=== PATIENT | female | born 1950 | race Caucasian/White ===

== ENCOUNTER 2016-10-03 17:33 | Emergency (ER) | payer MEDICARE ==
[~2016-10-03] VITALS: Ht 160 cm; Wt 95.5 kg
[~2016-10-03 17:33] MED LIST: ASPI81TA81; ATOR10TA15 PO; CELE20TA PO; CYCL5TAB PO; LEVO150T7 PO; METF500T PO; MOBI7.5T PO; PLAV75TA29 PO
[2016-10-03 17:36] VITALS: BP 177/81; PULSE 99; RESP 24; TEMP 99.4; O2SAT 97
--- NOTE | 2016-10-03 17:40 | PD ---
Physical Exam Date Seen by Provider: Oct 03, 2016 Time Seen by Provider: 17:38 Narrative 66 yo female here for severe upper abdominal pain in LUQ. Has had this since today. Progressively worst. No vomitiing. But nausea. History of bowel obstructions in the past and per patient feels similar. No BM issues. Pain is 8/ 10, severe and sharp. Vitals are stable in triage. Awaiting bed placement. Data Data Last Documented VS Vital Signs Date Time Temp Pulse Resp B/P Pulse Ox O2 Delivery O2 Flow Rate FiO2 10/03/16 17:36 99.4 99 24 177/81 97 Room Air [facility] Medical Record Reviewed: Yes Supervised Visit with MELLISSA: No Jameel Reynoso Oct 03, 2016 17:40
[2016-10-03] MEDS ORDERED: METF1000 PO (20:01)
[2016-10-03] MEDS ORDERED: LEVO25TA4 PO (20:02)
--- NOTE | 2016-10-03 20:12 | PD ---
HPI Chief Complaint: Abdominal Pain Time Seen by Provider: 20:06 Travel History International Travel<30 days: No Contact w/Intl Traveler<30days: No Traveled to known affect area: No History of Present Illness HPI 66-year-old overweight female presents the emergency department with history of abdominal pain since early this morning. Patient states she took her metformin 1000 mg which was recently prescribed to her and she developed this sort of central middle abdominal discomfort. She felt it was probably due to the medication at first but through the day her pain has progressed and worsened. She feels nauseous but has not vomited. The small amount of hard stool this morning. She has chills but no fever. She denies urinary or vaginal symptoms. Patient has history of small bowel obstruction in the past. She has no history of diverticulitis. She has no gallbladder or appendix at this time. She denies chest pain or shortness of breath. She states the pain is an ache which radiates through to her back. She has no appetite due to the pain. She is allergic to Diflucan. She has nausea with Tylenol 3. PFSH Past Medical History Arthritis: Yes Asthma: Yes (stress induced ) Autoimmune Disease: Yes (FAMILIAL TRAIT) Depression: Yes Heart Rhythm Problems: No High Cholesterol: Yes Chest Pain: No Congestive Heart Failure: No COPD: No Cerebrovascular Accident: Yes (CVA 1997/left thol area) Diabetes: Yes Patient Takes Glucophage: Yes Diminished Hearing: No Gastrointestinal Disorders: Yes (CELIAC'S) GERD: Yes Glaucoma: No Genitourinary: No Headaches: Yes Hepatitis: No Hiatal Hernia: No Hypertension: Yes Immune Disorder: Yes Kidney Stones: No Musculoskeletal: Yes Neurologic: Yes Reproductive: No Respiratory: No Immunizations Current: No Migraines: Yes Myocardial Infarction: No Renal Failure: No Seizures: No Sleep Apnea: No Thyroid Disease: Yes Ulcer: Yes (GASTRIC ULCER) Tetanus Vaccination: < 5 Years Influenza Vaccination: Yes PNEUMOCCOCAL Vaccine (Year): 1 ?: Not Menopausal: Yes : 5 Para: 3 Miscarriage: 2 : 0 Tubal Ligation: Yes Past Surgical History Abdominal Surgery: Yes (MESH AFTER GALL BLADDERdue to insci hernias) Appendectomy: Yes Cardiac Surgery: No Cholecystectomy: Yes Ear Surgery: No Endocrine Surgery: No Eye Surgery: No Genitourinary Surgery: No Gynecologic Surgery: Yes (BECK) Hysterectomy: Yes Joint Replacement: Yes (L KNEE) Neurologic Surgery: Yes Oral Surgery: No Thoracic Surgery: No Tonsillectomy: Yes Other Surgery: Yes Social History Alcohol Use: No Tobacco Use: No Substance Use: No Allergies-Medications (Allergen,Severity, Reaction): Coded Allergies: Diflucan (Verified Allergy, Severe, RASH, 10/03/16) Tylenol #3 (Verified Allergy, Severe, N/V, 10/03/16) Reported Meds & Prescriptions Reported Meds & Active Scripts Active Reported Levothyroxine (Levothyroxine Sodium) 25 Mcg Tab 25 Mcg PO DAILY Metformin (Metformin HCl) 1,000 Mg Tab 1,000 Mg PO BID With meals Plavix (Clopidogrel Bisulfate) 75 Mg Tab 75 Mg PO DAILY Aspir-81 (Aspirin) 81 Mg Tabdr Mobic (Meloxicam) 7.5 Mg Tab 7.5 Mg PO BID Atorvastatin (Atorvastatin Calcium) 10 Mg Tab 10 Mg PO HS Celexa (Citalopram Hydrobromide) 20 Mg Tab 20 Mg PO DAILY Review of Systems Except as stated in HPI: all other systems reviewed are Neg General / Constitutional: Positive: Chills, No: Fever Eyes: No: Visual changes HENT: No: Headaches Cardiovascular: No: Chest Pain or Discomfort Respiratory: No: Shortness of Breath Gastrointestinal: Positive: Nausea, Abdominal Pain, Loss of Appetite, No: Vomiting, Diarrhea, Hematemesis, Hematochezia, Constipation Genitourinary: No: Dysuria Musculoskeletal: No: Pain Skin: No Rash Neurologic: No: Weakness Psychiatric: No: Depression Endocrine: No: Polydipsia Hematologic/Lymphatic: No: Easy Bruising Physical Exam Narrative GENERAL: Obese female in mild to moderate distress. SKIN: Warm and dry. Normal color. Normal turgor. HEAD: Atraumatic. Normocephalic. EYES: Pupils equal and round. No scleral icterus. No injection or drainage. ENT: No nasal bleeding or discharge. Mucous membranes pink and moist. Pharynx is clear. Airway is patent. NECK: Trachea midline. Supple and nontender. CARDIOVASCULAR: Regular rate and rhythm. RESPIRATORY: No accessory muscle use. Clear to auscultation. Breath sounds equal bilaterally. GASTROINTESTINAL: Abdomen soft, moderate centralized tenderness to palpation with question of rebound tenderness, nondistended. No CVA tenderness. Bowel sounds are present in all quadrants. No hernias appreciated. Hepatic and splenic margins not palpable. MUSCULOSKELETAL: Extremities without clubbing, cyanosis, or edema. No obvious deformities. NEUROLOGICAL: Awake and alert. No obvious cranial nerve deficits. Motor grossly within normal limits. Five out of 5 muscle strength in the arms and legs. Normal speech. PSYCHIATRIC: Appropriate mood and affect; insight and judgment normal. Data Data Last Documented VS Vital Signs Date Time Temp Pulse Resp B/P Pulse Ox O2 Delivery O2 Flow Rate FiO2 10/03/16 20:29 97 Room Air 10/03/16 20:13 81 20 171/89 10/03/16 17:36 99.4 Orders Complete Blood Count With Diff (10/03/16 20:04) Comprehensive Metabolic Panel (10/03/16 20:04) Lipase (10/03/16 20:04) Lactic Acid (10/03/16 20:04) Prothrombin Time / Inr (Pt) (10/03/16 20:04) Act Partial Throm Time (Ptt) (10/03/16 20:04) Urinalysis - C+S If Indicated (10/03/16 20:04) Ct Abd/Pel W Iv Contrast(Rout) (10/03/16 20:04) Iv Access Insert/Monitor (10/03/16 20:04) Ecg Monitoring (10/03/16 20:04) Oximetry (10/03/16 20:04) Sodium Chloride 0.9% Flush (Ns Flush) (10/03/16 20:15) Electrocardiogram (10/03/16 20:04) Morphine Inj (Morphine Inj) (10/03/16 21:00) Ondansetron Inj (Zofran Inj) (10/03/16 20:15) Sodium Chlorid 0.9% 500 Ml Inj (Ns 500 M (10/03/16 20:15) Oral Contrast - Adult (10/03/16 ) Hydromorphone Pf Inj (Dilaudid Pf Inj) (10/03/16 21:45) Diatrizoate Liq ( Gastroview Liq) (10/03/16 22:11) Labs Laboratory Tests Test 10/03/16 10/03/16 20:20 20:25 White Blood Count 12.2 TH/MM3 Red Blood Count 4.58 MIL/MM3 Hemoglobin 12.6 GM/DL Hematocrit 37.6 % Mean Corpuscular Volume 82.2 FL Mean Corpuscular Hemoglobin 27.5 PG Mean Corpuscular Hemoglobin 33.5 % Concent Red Cell Distribution Width 15.1 % Platelet Count 301 TH/MM3 Mean Platelet Volume 7.5 FL Neutrophils (%) (Auto) 65.1 % Lymphocytes (%) (Auto) 24.3 % Monocytes (%) (Auto) 6.5 % Eosinophils (%) (Auto) 3.6 % Basophils (%) (Auto) 0.5 % Neutrophils # (Auto) 7.9 TH/MM3 Lymphocytes # (Auto) 3.0 TH/MM3 Monocytes # (Auto) 0.8 TH/MM3 Eosinophils # (Auto) 0.4 TH/MM3 Basophils # (Auto) 0.1 TH/MM3 CBC Comment DIFF FINAL Differential Comment Prothrombin Time 10.4 SEC Prothromb Time International 0.9 RATIO Ratio Activated Partial 24.4 SEC Thromboplast Time Sodium Level 139 MEQ/L Potassium Level 4.2 MEQ/L Chloride Level 106 MEQ/L Carbon Dioxide Level 23.7 MEQ/L Anion Gap 9 MEQ/L Blood Urea Nitrogen 22 MG/DL Creatinine 0.95 MG/DL Estimat Glomerular Filtration 58 ML/MIN Rate Random Glucose 97 MG/DL Calcium Level 9.1 MG/DL Total Bilirubin 0.4 MG/DL Aspartate Amino Transf 21 U/L (AST/SGOT) Alanine Aminotransferase 20 U/L (ALT/SGPT) Alkaline Phosphatase 72 U/L Total Protein 7.1 GM/DL Albumin 3.4 GM/DL Lipase 168 U/L Lactic Acid Level 1.7 mmol/L MDM Medical Decision Making Medical Screen Exam Complete: Yes Emergency Medical Condition: Yes Medical Record Reviewed: Yes Differential Diagnosis Gastritis. Gastroenteritis. Biliary colic. Pancreatitis. Diverticulitis. Small bowel obstruction. Narrative Course Patient is uncomfortable but medically stable at time of exam. Labs ordered including CBC, CMP, lactic acid, lipase, urinalysis. EKG is ordered as well as CT of the abdomen with IV and oral contrast. IV access is obtained and the patient is given 4 mg IV Zofran and 4 mg morphine IV. Patient is given 500 mg normal saline bolus. CBC shows a slight leukocytosis of 12.2. CMP shows nothing remarkable with a normal lactic acid of 1.7, BUN is slightly elevated at 22 otherwise no significant findings. 2300 hrs. care of the patient is assumed by Dr. Brandt. CT scan has not been performed yet. Final disposition will be from Dr. Orozco. Condition: Stable Tacho Duarte Oct 03, 2016 20:12
[2016-10-03 20:13] VITALS: BP 171/89; PULSE 81; RESP 20; O2SAT 97
[2016-10-03] MEDS ORDERED: SODIUM CHLORID 0.9% 500 ML INJ 500 ML IV ONE (20:15)
[2016-10-03] MEDS ORDERED: SODIUM CHLORIDE 0.9% FLUSH 10 ML FLUSH IV FLUSH PRN (20:15)
[2016-10-03] MEDS ORDERED: ONDANSETRON HCL 4 MG/2 ML VIAL IVP ONE (20:15)
[2016-10-03 20:29] VITALS: O2SAT 97
[2016-10-03] MEDS ORDERED: MORPHINE SULFATE 4 MG/ML INJ IV PUSH ONE (21:00)
[2016-10-03 21:08] LABS: AUTOMATED NEUTROPHIL # 7.9 TH/MM3 (1.8-7.7); BASOPHIL # 0.1 TH/MM3 (0-0.2); BASOPHIL % 0.5 % (0.0-2.0); EOSINOPHIL # 0.4 TH/MM3 (0-0.4); EOSINOPHIL % 3.6 % (0.0-4.0); HEMATOCRIT 37.6 % (35.0-46.0); HEMO FLAGS DIFF FINAL; LYMPH % 24.3 % (9.0-44.0); MEAN CELL VOLUME 82.2 FL (80.0-100.0); MEAN CORPUSCULAR HEMOGLOBIN 27.5 PG (27.0-34.0); MEAN CORPUSCULAR HGB CONC 33.5 % (32.0-36.0); MONO % 6.5 % (0.0-8.0); NEUT % 65.1 % (16.0-70.0); PLATELET COUNT 301 TH/MM3 (150-450); RED BLOOD COUNT 4.58 MIL/MM3 (4.00-5.30); RED CELL DISTRIBUTION WIDTH 15.1 % (11.6-17.2); WHITE BLOOD COUNT 12.2 TH/MM3 (4.0-11.0)
[2016-10-03 21:18] LABS: APTT (PATIENT) 24.4 SEC (24.3-30.1); INTERNATIONAL NORMALIZED RATIO 0.9 RATIO; PROTHROMBIN TIME - PATIENT 10.4 SEC (9.8-11.6)
[2016-10-03 21:27] LABS: ALT (GPT) 20 U/L (10-53)
[2016-10-03 21:29] LABS: ALKALINE PHOSPHATASE 72 U/L (45-117); ANION GAP 9 MEQ/L (5-15); AST (GOT) 21 U/L (15-37); BICARBONATE 23.7 MEQ/L (21.0-32.0); BLOOD UREA NITROGEN 22 MG/DL (7-18); CHLORIDE 106 MEQ/L (98-107); GLOMERULAR FILTRATION RATE 58 ML/MIN (>89); POTASSIUM 4.2 MEQ/L (3.5-5.1); SODIUM (NA) 139 MEQ/L (136-145); TOTAL BILIRUBIN ADULT 0.4 MG/DL (0.2-1.0)
[2016-10-03] MEDS ORDERED: HYDROmorphone HCL PF 1 MG/ML VIAL IV PUSH ONE (21:45)
[2016-10-03] MEDS ORDERED: DIATRIZOATE MEGLUM/DIATRIZOATE SOD 9 ML CUP ONE (22:11)
[2016-10-03 23:02] LABS: BLOOD, URINE NEG (NEG); COMMENT (UR) CULT NOT INDICATED; CULTURE IF INDICATED CULT NOT INDICATED; GLUCOSE,URINE NEG (NEG); KETONE, URINE NEG (NEG); MUCUS URINE FEW /lpf (OCC); NITRITE,URINE NEG (NEG); SQUAMOUS EPITHELIAL CELL URINE 1 /hpf (0-5); URINE COLOR YELLOW (YELLW/STRAW)
[2016-10-03 23:33] VITALS: BP 141/67; PULSE 84; RESP 20; O2SAT 97
[2016-10-03] MEDS ORDERED: IOHEXOL 350 MG/ML 10 ML VIAL (for RAD DIAG) IV ONE (23:36)
--- NOTE | 2016-10-03 23:49 | RADRPT ---
EXAM DATE/TIME: 10/03/2016 23:15 [place] COMPARISON: No previous studies available for comparison. INDICATIONS : Abdominal pain since this morning. IV CONTRAST: 97 cc Omnipaque 350 (iohexol) IV ORAL CONTRAST: Prescribed oral contrast ingested. RADIATION DOSE: 19.65 CTDIvol (mGy) MEDICAL HISTORY : Hypertension. partial bowel obstruction SURGICAL HISTORY : Appendectomy. Cholecystectomy.Tubal ligation. ENCOUNTER: Initial ACUITY: 1 day PAIN SCALE: 7/10 LOCATION: abdomen TECHNIQUE: Volumetric scanning of the abdomen and pelvis was performed. Using automated exposure control and ad justment of the mA and/or kV according to patient size, radiation dose was kept as low as reasonably achievable to obtain optimal diagnostic quality images. DICOM format image data is available electro nically for review and comparison. FINDINGS: LOWER LUNGS: The visualized lower lungs are clear. Faint nodule left lower lobe is unchanged. LIVER: Homogeneous density without lesion. There is no dilation of the biliary tree. Suspected cholecystect rhonda. Clips in the hepatic vein SPLEEN: Normal size without lesion. PANCREAS: Within normal limits. KIDNEYS: Normal in size and shape. There is no mass, stone or hydronephrosis. ADRENAL GLANDS: Within normal limits. VASCULAR: There is no aortic aneurysm. BOWEL/MESENTERY: The stomach, small bowel, and colon demonstrate no acute abnormality. There is no free intraperitone al air or fluid. ABDOMINAL WALL: Within normal limits. Previous hernia mesh RETROPERITONEUM: There is no lymphadenopathy. BLADDER: No wall thickening or mass. REPRODUCTIVE: Within normal limits. INGUINAL: There is no lymphadenopathy or hernia. MUSCULOSKELETAL: Within normal limits for patient age. CONCLUSION: Normal examination with cholecystectomy previous hernia surgery. No evidence of bowel obstruction. No free fluid, mass, or soft tissue mass. Damien Conklin MD on October 03, 2016 at 23:43 Board Certified Radiologist. This report was verified electronically.
[2016-10-04] MEDS ORDERED: ZOFR4TAB3 SL (00:05)
[2016-10-04] MEDS ORDERED: DICY10 PO (00:05)
--- NOTE | 2016-10-04 00:06 | PD ---
Physical Exam Date Seen by Provider: Oct 03, 2016 Time Seen by Provider: 23:00 Narrative I, Dr. Carranza, have reviewed the advance practice practitioner's documentation and am in agreement, met with the patient face to face, made the diagnosis, and the medical decision making was done by me. *My assessment and Findings: Patient seen and evaluated with PA, please see PA note for further details. Laboratory Tests Test 10/03/16 10/03/16 20:20 21:55 White Blood Count 12.2 TH/MM3 (4.0-11.0) Neutrophils # (Auto) 7.9 TH/MM3 (1.8-7.7) Blood Urea Nitrogen 22 MG/DL (7-18) Estimat Glomerular Filtration 58 ML/MIN (>89) Rate Urine Leukocyte Esterase SMALL (NEG) Urine Mucus FEW /lpf (OCC) CT of the abdomen pelvis was unremarkable for any acute processes. Lab work was otherwise unremarkable for significant metabolic issues although she had mild leukocytosis. At this point, I have talked to the patient regarding findings and patient has had no further vomiting episodes while in the ER. Vital signs are stable in the ER. I have discussed outpatient follow-up closely with primary care physician versus observation admission. At this point , patient states that she would rather try to follow up outpatient with the primary care physician. Return for any worsening in symptoms as needed. The plan has been discussed with her and she states understanding. Data Data Last Documented VS Vital Signs Date Time Temp Pulse Resp B/P Pulse Ox O2 Delivery O2 Flow Rate FiO2 10/03/16 23:33 84 20 141/67 97 Room Air 10/03/16 17:36 99.4 Orders Complete Blood Count With Diff (10/03/16 20:04) Comprehensive Metabolic Panel (10/03/16 20:04) Lipase (10/03/16 20:04) Lactic Acid (10/03/16 20:04) Prothrombin Time / Inr (Pt) (10/03/16 20:04) Act Partial Throm Time (Ptt) (10/03/16 20:04) Urinalysis - C+S If Indicated (10/03/16 20:04) Ct Abd/Pel W Iv Contrast(Rout) (10/03/16 20:04) Iv Access Insert/Monitor (10/03/16 20:04) Ecg Monitoring (10/03/16 20:04) Oximetry (10/03/16 20:04) Sodium Chloride 0.9% Flush (Ns Flush) (10/03/16 20:15) Electrocardiogram (10/03/16 20:04) Morphine Inj (Morphine Inj) (10/03/16 21:00) Ondansetron Inj (Zofran Inj) (10/03/16 20:15) Sodium Chlorid 0.9% 500 Ml Inj (Ns 500 M (10/03/16 20:15) Oral Contrast - Adult (10/03/16 ) Hydromorphone Pf Inj (Dilaudid Pf Inj) (10/03/16 21:45) Diatrizoate Liq ( Gastroview Liq) (10/03/16 22:11) Iohexol 350 Inj (Omnipaque 350 Inj) (10/03/16 23:36) Labs Laboratory Tests Test 10/03/16 10/03/16 10/03/16 20:20 20:25 21:55 White Blood Count 12.2 TH/MM3 Red Blood Count 4.58 MIL/MM3 Hemoglobin 12.6 GM/DL Hematocrit 37.6 % Mean Corpuscular Volume 82.2 FL Mean Corpuscular Hemoglobin 27.5 PG Mean Corpuscular Hemoglobin 33.5 % Concent Red Cell Distribution Width 15.1 % Platelet Count 301 TH/MM3 Mean Platelet Volume 7.5 FL Neutrophils (%) (Auto) 65.1 % Lymphocytes (%) (Auto) 24.3 % Monocytes (%) (Auto) 6.5 % Eosinophils (%) (Auto) 3.6 % Basophils (%) (Auto) 0.5 % Neutrophils # (Auto) 7.9 TH/MM3 Lymphocytes # (Auto) 3.0 TH/MM3 Monocytes # (Auto) 0.8 TH/MM3 Eosinophils # (Auto) 0.4 TH/MM3 Basophils # (Auto) 0.1 TH/MM3 CBC Comment DIFF FINAL Differential Comment Prothrombin Time 10.4 SEC Prothromb Time International 0.9 RATIO Ratio Activated Partial 24.4 SEC Thromboplast Time Sodium Level 139 MEQ/L Potassium Level 4.2 MEQ/L Chloride Level 106 MEQ/L Carbon Dioxide Level 23.7 MEQ/L Anion Gap 9 MEQ/L Blood Urea Nitrogen 22 MG/DL Creatinine 0.95 MG/DL Estimat Glomerular Filtration 58 ML/MIN Rate Random Glucose 97 MG/DL Calcium Level 9.1 MG/DL Total Bilirubin 0.4 MG/DL Aspartate Amino Transf 21 U/L (AST/SGOT) Alanine Aminotransferase 20 U/L (ALT/SGPT) Alkaline Phosphatase 72 U/L Total Protein 7.1 GM/DL Albumin 3.4 GM/DL Lipase 168 U/L Lactic Acid Level 1.7 mmol/L Urine Color YELLOW Urine Turbidity CLEAR Urine pH 5.0 Urine Specific Romance 1.020 Urine Protein NEG mg/dL Urine Glucose (UA) NEG mg/dL Urine Ketones NEG mg/dL Urine Occult Blood NEG Urine Nitrite NEG Urine Bilirubin NEG Urine Urobilinogen LESS THAN 2.0 MG/DL Urine Leukocyte Esterase SMALL Urine RBC 2 /hpf Urine WBC 3 /hpf Urine Squamous Epithelial 1 /hpf Cells Urine Mucus FEW /lpf Microscopic Urinalysis Comment CULT NOT INDICATED MDM Medical Record Reviewed: Yes Supervised Visit with MELLISSA: Yes Diagnosis Primary Impression: Abdominal pain Med/Other Pt SpecificInfo: Prescription(s) given Scripts Ondansetron Odt (Zofran Odt)4 Mg Tab4 Mg SL Q6HR PRN (Nausea/Vomiting) #7 TAB Ref 0 Prov:Toby Craranza MD 10/04/16 Dicyclomine (Bentyl)10 Mg Cap10 Mg PO TID PRN (Bowel Management) #15 CAP Ref 0 Prov:Toby Carranza MD 10/04/16 Disposition: 01 DISCHARGE HOME Condition: Stable Toby Carranza MD Oct 04, 2016 00:05
--- NOTE | 2016-10-04 16:31 | EKG ---
Date Performed: 10/03/2016 Time Performed: 20:15:42 PTAGE: 66 years EKG: Sinus rhythm NORMAL ECG PREVIOUS TRACING : 10/03/2016 20.15 Since previous tracing, no significant change. DOCTOR: Garry Yadav Interpretating Date/Time 10/04/2016 16:30:51
== END 2016-10-04 00:39 | disposition home or self-care (01) ==
LOC: NEPE 17:33
DX: R10.12 Left upper quadrant pain (principal); R11.0 Nausea; E11.9 Type 2 diabetes mellitus without complications; I10 Essential (primary) hypertension; K21.9 Gastro-esophageal reflux disease without esophagitis; Z79.02 Long term (current) use of antithrombotics/antiplatelets; Z79.82 Long term (current) use of aspirin; Z79.84 Long term (current) use of oral hypoglycemic drugs
CPT/HCPCS: 74177; 80053; 81001; 83605; 83690; 85025; 85610; 85730; 93005; 96361; 96374; 96375; 99285; J1170; J2270; J2405; J7040; Q9963; Q9967

== ENCOUNTER 2017-08-07 23:55 | Emergency (ER) | payer MEDICARE, OTHER ==
[~2017-08-07] VITALS: Ht 160 cm; Wt 100.0 kg
[~2017-08-07 23:55] MED LIST changes: -CYCL5TAB PO; +DICY10 PO; -LEVO150T7 PO; +LEVO25TA4 PO; +METF1000 PO; -METF500T PO; +ZOFR4TAB3 SL
[2017-08-08 00:03] VITALS: BP 190/90; PULSE 88; RESP 18; O2SAT 97
[2017-08-08] MEDS ORDERED: CLON0.5T PO (00:09)
[2017-08-08] MEDS ORDERED: SODIUM CHLOR 0.9% 1000 ML INJ 1,000 ML IV SCH (00:42)
[2017-08-08] MEDS ORDERED: ONDANSETRON HCL 4 MG/2 ML VIAL IM ONE (00:45)
[2017-08-08] MEDS ORDERED: SODIUM CHLORIDE 0.9% FLUSH 10 ML FLUSH IV FLUSH PRN (00:45)
[2017-08-08] MEDS ORDERED: HYDROmorphone HCL PF 2 MG/ML VIAL IV PUSH ONE (00:45)
[2017-08-08] MEDS ORDERED: KETOROLAC TROMETHAMINE 30 MG/ML (IVP) VIAL IV PUSH ONE (00:45)
[2017-08-08 00:49] VITALS: O2SAT 98
[2017-08-08] MEDS ORDERED: ONDANSETRON ODT 4 MG TAB PO ONE (01:15)
[2017-08-08 01:27] LABS: AUTOMATED NEUTROPHIL # 6.2 TH/MM3 (1.8-7.7); BASOPHIL # 0.1 TH/MM3 (0-0.2); BASOPHIL % 0.9 % (0.0-2.0); EOSINOPHIL # 0.5 TH/MM3 (0-0.4); EOSINOPHIL % 4.6 % (0.0-4.0); HEMATOCRIT 36.8 % (35.0-46.0); HEMOGLOBIN 12.1 GM/DL (11.6-15.3); LYMPH % 30.9 % (9.0-44.0); LYMPHOCYTE # 3.4 TH/MM3 (1.0-4.8); MEAN CELL VOLUME 83.1 FL (80.0-100.0); MEAN CORPUSCULAR HEMOGLOBIN 27.3 PG (27.0-34.0); MEAN CORPUSCULAR HGB CONC 32.8 % (32.0-36.0); MEAN PLATELET VOLUME 7.4 FL (7.0-11.0); MONO % 7.6 % (0.0-8.0); MONOCYTE # 0.8 TH/MM3 (0-0.9); PLATELET COUNT 334 TH/MM3 (150-450); RED BLOOD COUNT 4.43 MIL/MM3 (4.00-5.30); RED CELL DISTRIBUTION WIDTH 15.2 % (11.6-17.2); WHITE BLOOD COUNT 11.1 TH/MM3 (4.0-11.0)
[2017-08-08 01:55] LABS: BICARBONATE 26.7 MEQ/L (21.0-32.0); CALCIUM 8.8 MG/DL (8.5-10.1); CREATININE 1.02 MG/DL (0.50-1.00)
[2017-08-08 02:17] LABS: BILIRUBIN, URINE NEG (NEG); BLOOD, URINE NEG (NEG); GLUCOSE,URINE NEG (NEG); KETONE, URINE NEG (NEG); MUCUS URINE FEW /lpf (OCC); NITRITE,URINE NEG (NEG); PH, URINE 5.5 (5.0-8.5); SQUAMOUS EPITHELIAL CELL URINE 1 /hpf (0-5); URINE COLOR YELLOW (YELLW/STRAW); URINE LEUKOCYTE ESTERASE NEG (NEG)
[2017-08-08] MEDS ORDERED: IOHEXOL 350 MG/ML 10 ML VIAL (for RAD DIAG) IVCONTRAST ONE (02:43)
--- NOTE | 2017-08-08 03:17 | RADRPT ---
EXAM DATE: 08/08/2017 2:49 AM EDT AGE/SEX: 67 years / Female INDICATIONS: Abdomen and back pain. CLINICAL DATA: This is the patient's initial encounter. Patient reports that signs and symptoms have been present for 1 day and indicates a pain score of 10/10. MEDICAL/SURGICAL HISTORY: Cerebrovascular disease. Hypertension. Diabetes mellitus type II. GERD Appendectomy. Cholecystectomy. Hysterectomy. Left knee replacement. Hernia repair. ORAL CONTRAST: No oral contrast ingested. RADIATION DOSE: 21.53 CTDI (mGy) COMPARISON: [facility] [place], CT ABDOMEN & PELVIS W CONTRAST, 10/03/2016. . TECHNIQUE: Multiple contiguous axial images were obtained through the abdomen and pelvis following b olus infusion of 95 ml Omnipaque 350 (iohexol) nonionic water-soluble contrast as a cumulative dose for multiple exams. No oral contrast ingested. Using automated exposure control and adjustment of t he mA and/or kV according to patient size, the radiation dose was kept as low as reasonably achievabl e to obtain optimal diagnostic quality images. FINDINGS: Lower Lungs: The visualized lower lungs are clear. Liver: There is diffuse decreased attenuation to the liver. There are clips around the common bile du ct and there appear to be small metallic densities at the middle hepatic vein region. The patient is status post cholecystectomy. Spleen: Homogeneous density without enlargement. Pancreas: Unremarkable without mass or calcification. Kidneys: There is a 3 mm nonobstructing right renal stone. No hydronephrosis is seen on either side. Adrenal Glands: Unremarkable. Aorta: Atherosclerotic calcifications are present. No aneurysm is seen. Bowel/Mesentery: There is a 3.9 cm duodenal diverticulum seen at the second portion of the duodenum. There are scattered colonic diverticula especially in the sigmoid region. Significant inflammatory c hange is not seen. Abdominal Wall: There is hernia mesh seen in the midline of the upper abdomen. There is a minimal um bilical hernia containing a small amount of mesenteric fat. There are some chronic induration in the subcutaneous fat at the lower left anterior abdominal wall likely related to fat necrosis. This was p resent previously. Retroperitoneum: No evidence of adenopathy in the retrocrural, para-aortic, or deep pelvic regions. Bladder: There are some tiny calcification seen at the posterior right aspect of the bladder potenti ally related to past stones or some calcification of the wall. These appear lateral to the UVJ. There is no hydronephrosis or hydroureter. Reproductive Organs: The patient is status post hysterectomy. Inguinal: The inguinal region is unremarkable without evidence of adenopathy. Bony Structures: There is degenerative change in the lumbar spine. CONCLUSION: 1. No definite acute abnormality is seen. 2. 3 mm nonobstructing right renal stone. 3. Hepatic steatosis. 4. Scattered colonic diverticula without inflammatory change. 5. Tiny calcifications in the posterior right aspect of the urinary bladder related to either passed stones or calcifications in the wall. These appear lateral to the UVJ. 6. Degenerative change in the lumbar spine. Electronically signed by: Nikhil Richey MD 08/08/2017 3:16 AM EDT
--- NOTE | 2017-08-08 03:29 | PD ---
HPI Chief Complaint: Back/ Neck Pain or Injury Time Seen by Provider: 00:42 Travel History International Travel<30 days: No Contact w/Intl Traveler<30days: No Traveled to known affect area: No History of Present Illness HPI 67-year-old female presents to the emergency department complaining of severe left flank to left lower abdomen pain that worsens with range of motion of the back and left lower extremity. No referred pain to the lower extremities no bladder or bowel dysfunction no saddle anesthesia and no lower extremity numbness tingling or weakness. Patient complains of severe back pains such that she is unable to move to straighten her legs or to get out of bed. Patient had to come to the emergency room department by ambulance due to her severe intractable pain. Patient has history of spinal stenosis and chronic back pain. Patient states that her is handicapped and she has been lifting his walker in and out of the car for him several times this week as well as doing yard work and lifting objects which is atypical for her. Patient also reports that she knows she has lumbar disc disease and some herniated disks reportedly. Patient denies any fall or other injury. Patient has had no fever no chills no nausea no vomiting except for the pain related nausea this evening. Patient has had no history of diverticulitis or diverticulosis. No dysuria frequency urgency hematuria and no prior history of kidney stones. Patient states movement causes severe exacerbation of her pain. Patient rates her current pain 9/10 in intensity. PFSH Past Medical History Narrative Medical Arthritis chronic back pain asthma dyslipidemia hypothyroidism CVA diabetes hypertension celiac disorder familial tremor appendectomy hysterectomy cholecystectomy; no tobacco use; nursing notes reviewed Arthritis: Yes Asthma: Yes (stress induced ) Autoimmune Disease: Yes (FAMILIAL TRAIT) Depression: Yes Heart Rhythm Problems: No High Cholesterol: Yes Chest Pain: No Congestive Heart Failure: No COPD: No Cerebrovascular Accident: Yes (CVA 1997/left [facility] area) Diabetes: Yes Patient Takes Glucophage: Yes Diminished Hearing: No Gastrointestinal Disorders: Yes (CELIAC'S) GERD: Yes Glaucoma: No Genitourinary: No Headaches: Yes Hepatitis: No Hiatal Hernia: No Hypertension: Yes Immune Disorder: Yes Kidney Stones: No Medical other: Yes (TREMORS) Musculoskeletal: Yes Neurologic: Yes Reproductive: No Respiratory: No Immunizations Current: No Migraines: Yes Myocardial Infarction: No Renal Failure: No Seizures: No Sleep Apnea: No Thyroid Disease: Yes Ulcer: Yes (GASTRIC ULCER) PNEUMOCCOCAL Vaccine (Year): 1 Menopausal: Yes : 5 Para: 3 Miscarriage: 2 : 0 Tubal Ligation: Yes Past Surgical History Abdominal Surgery: Yes (MESH AFTER GALL BLADDERdue to insci hernias) Appendectomy: Yes Cardiac Surgery: No Cholecystectomy: Yes Ear Surgery: No Endocrine Surgery: No Eye Surgery: No Genitourinary Surgery: No Gynecologic Surgery: Yes (BECK) Hysterectomy: Yes Joint Replacement: Yes (L KNEE) Neurologic Surgery: Yes Oral Surgery: No Thoracic Surgery: No Tonsillectomy: Yes Other Surgery: Yes Social History Alcohol Use: No Tobacco Use: No Substance Use: No Allergies-Medications (Allergen,Severity, Reaction): Coded Allergies: acetaminophen (Unverified Allergy, Severe, N/V, 08/08/17) codeine (Unverified Allergy, Severe, N/V, 08/08/17) fluconazole (Unverified Allergy, Severe, RASH, 08/08/17) Reported Meds & Prescriptions Reported Meds & Active Scripts Active Reported Clonazepam 0.5 Mg Tab 0.5 Mg PO BID Levothyroxine (Levothyroxine Sodium) 25 Mcg Tab 25 Mcg PO DAILY Metformin (Metformin HCl) 1,000 Mg Tab 1,000 Mg PO BID With meals Plavix (Clopidogrel Bisulfate) 75 Mg Tab 75 Mg PO DAILY Aspir-81 (Aspirin) 81 Mg Tabdr Mobic (Meloxicam) 7.5 Mg Tab 7.5 Mg PO BID Atorvastatin (Atorvastatin Calcium) 10 Mg Tab 10 Mg PO HS Celexa (Citalopram Hydrobromide) 20 Mg Tab 20 Mg PO DAILY Review of Systems Except as stated in HPI: all other systems reviewed are Neg General / Constitutional: No: Fever, Chills HENT: No: Congestion Cardiovascular: No: Chest Pain or Discomfort Respiratory: No: Shortness of Breath Gastrointestinal: Positive: Abdominal Pain Genitourinary: Positive: Flank Pain Musculoskeletal: Positive: Myalgias (Left lower quadrant), Arthralgias, Pain Skin: No Rash (Low back pain and hip pain) Neurologic: No: Weakness, Incontinence Psychiatric: No: Anxiety Hematologic/Lymphatic: No: Lymph Node Enlargement Physical Exam Narrative GENERAL: Well-developed well-nourished obese female no acute distress no respiratory distress SKIN: Warm and dry. HEAD: Normocephalic. EYES: No scleral icterus. No injection or drainage. NECK: Supple, trachea midline. No JVD or lymphadenopathy. CARDIOVASCULAR: Regular rate and rhythm without murmurs, gallops, or rubs. RESPIRATORY: Breath sounds equal bilaterally. No accessory muscle use. GASTROINTESTINAL: Abdomen soft, non-tender, nondistended. MUSCULOSKELETAL: No cyanosis, or edema. Bilateral dorsalis pedis pulses 2+ to palpation motor and sensory exam intact. BACK: Nontender without obvious deformity except for reproducible left lower back and left SI tenderness to palpation. Patient will not attempt to perform straight leg raising testing. No CVA tenderness. Data Data Last Documented VS Vital Signs Date Time Temp Pulse Resp B/P (MAP) Pulse Ox O2 Delivery O2 Flow Rate FiO2 08/08/17 00:49 98 Room Air 08/08/17 00:03 88 18 190/90 (123) Orders Orders Basic Metabolic Panel (Bmp) (08/08/17 00:42) Complete Blood Count With Diff (08/08/17 00:42) Urinalysis - C+S If Indicated (08/08/17 00:42) Ct Abd/Pel W Iv Contrast(Rout) (08/08/17 00:42) Iv Access Insert/Monitor (08/08/17 00:42) Ecg Monitoring (08/08/17 00:42) Oximetry (08/08/17 00:42) Sodium Chlor 0.9% 1000 Ml Inj (Ns 1000 M (08/08/17 00:42) Sodium Chloride 0.9% Flush (Ns Flush) (08/08/17 00:45) Hydromorphone Pf Inj (Dilaudid Pf Inj) (08/08/17 00:45) Ketorolac Inj (Toradol Inj) (08/08/17 00:45) Ondansetron Odt (Zofran Odt) (08/08/17 01:15) Iohexol 350 Inj (Omnipaque 350 Inj) (08/08/17 02:43) Labs Laboratory Tests Test 08/08/17 01:04 08/08/17 02:07 White Blood Count 11.1 TH/MM3 Red Blood Count 4.43 MIL/MM3 Hemoglobin 12.1 GM/DL Hematocrit 36.8 % Mean Corpuscular Volume 83.1 FL Mean Corpuscular Hemoglobin 27.3 PG Mean Corpuscular Hemoglobin Concent 32.8 % Red Cell Distribution Width 15.2 % Platelet Count 334 TH/MM3 Mean Platelet Volume 7.4 FL Neutrophils (%) (Auto) 56.0 % Lymphocytes (%) (Auto) 30.9 % Monocytes (%) (Auto) 7.6 % Eosinophils (%) (Auto) 4.6 % Basophils (%) (Auto) 0.9 % Neutrophils # (Auto) 6.2 TH/MM3 Lymphocytes # (Auto) 3.4 TH/MM3 Monocytes # (Auto) 0.8 TH/MM3 Eosinophils # (Auto) 0.5 TH/MM3 Basophils # (Auto) 0.1 TH/MM3 CBC Comment DIFF FINAL Differential Comment Blood Urea Nitrogen 12 MG/DL Creatinine 1.02 MG/DL Random Glucose 107 MG/DL Calcium Level 8.8 MG/DL Sodium Level 143 MEQ/L Potassium Level 4.0 MEQ/L Chloride Level 108 MEQ/L Carbon Dioxide Level 26.7 MEQ/L Anion Gap 8 MEQ/L Estimat Glomerular Filtration Rate 54 ML/MIN Urine Color YELLOW Urine Turbidity CLEAR Urine pH 5.5 Urine Specific [place] 1.015 Urine Protein NEG mg/dL Urine Glucose (UA) NEG mg/dL Urine Ketones NEG mg/dL Urine Occult Blood NEG Urine Nitrite NEG Urine Bilirubin NEG Urine Urobilinogen LESS THAN 2.0 MG/DL Urine Leukocyte Esterase NEG Urine RBC 1 /hpf Urine WBC 1 /hpf Urine Squamous Epithelial Cells 1 /hpf Urine Mucus FEW /lpf Microscopic Urinalysis Comment CULT NOT INDICATED MDM Medical Decision Making Medical Screen Exam Complete: Yes Emergency Medical Condition: Yes Medical Record Reviewed: Yes Interpretation(s) Last Impressions Abdomen/Pelvis CT 08/08/1741 Signed Impressions: CONCLUSION: 1. No definite acute abnormality is seen. 2. 3 mm nonobstructing right renal stone. 3. Hepatic steatosis. 4. Scattered colonic diverticula without inflammatory change. 5. Tiny calcifications in the posterior right aspect of the urinary bladder re lated to either passed stones or calcifications in the wall. These appear later al to the [facility]. 6. Degenerative change in the lumbar spine. CBC & BMP Diagram 08/08/17 01:04 Calcium Level 8.8 Vital Signs Date Time Temp Pulse Resp B/P (MAP) Pulse Ox O2 Delivery O2 Flow Rate FiO2 08/08/17 00:49 98 Room Air 08/08/17 00:03 88 18 190/90 (789) 94 Differential Diagnosis Sciatica, compression fracture, piriformis syndrome,HNP, diverticulitis, renal colic/nephrolithiasis, bursitis; no findings for cauda equina syndrome or septic arthritis Narrative Course IV access obtained specimens collected and sent for resulting patient administered Toradol 30 mg IV and Dilaudid 1 mg IV patient resting comfortably voicing no concerns or complaints Lab values in normal range CT abdomen pelvis pending CT abdomen pelvis with contrast identifies diverticulosis without diverticulitis bilateral nephrolithiasis without obstruction and degenerative changes of the lumbar spine no acute intra-abdominal or pelvic findings Patient informed of imaging results awakened from sleep to discuss lab results and CT. Patient asking for additional pain medicine but appears drowsy secondary to initial administration of narcotic pain medication and anti- inflammatory medication. At this time no additional medication will be administered but patient will be stable for discharge to home with prescriptions for tramadol prednisone Robaxin and as needed Zofran. Diagnosis Primary Impression: Acute exacerbation of chronic low back pain Additional Impressions: Nephrolithiasis Diverticulosis Referrals: Primary Care Physician 2 days Patient Instructions: Narcotic given in the ED, General Instructions Additional Instructions: Apply ice pack intermittently to areas of soft tissue discomfort for the first 12-24 hours then recommend application of moist heat intermittently to low back Take pain medication as prescribed as needed Complete course of steroid as prescribed Return to the emergency department for any concerns or change in condition Med/Other Pt SpecificInfo: Prescription(s) given Scripts Ondansetron Odt (Zofran Odt) 4 Mg Tab 4 MG SL Q6HR Y for Nausea/Vomiting, #10 TAB 0 Refills Prov: Sulma Owens MD 08/08/17 Methocarbamol (Robaxin) 750 Mg Tab 750 MG PO Q6HR for Muscle Spasm, #12 TAB 0 Refills Prov: Sulma Owens MD 08/08/17 Tramadol (Tramadol) 50 Mg Tab 50 MG PO Q6H Y for PAIN, #12 TAB 0 Refills Prov: Sulma Owens MD 08/08/17 Prednisone (Prednisone) 20 Mg Tab 40 MG PO DAILY for 3 Days, #6 TAB 0 Refills Take 40 mg (2 tablets) daily for 5 days Prov: Sulma Owens MD 08/08/17 Disposition: 01 DISCHARGE HOME Condition: Stable Sulma Owens MD Aug 08, 2017 03:29
[2017-08-08] MEDS ORDERED: ZOFR4TAB3 SL (03:38)
[2017-08-08] MEDS ORDERED: PRED20 PO (03:38)
[2017-08-08] MEDS ORDERED: TRAM50TA PO (03:38)
[2017-08-08] MEDS ORDERED: ROBA750T PO (03:38)
== END 2017-08-08 06:58 | disposition home or self-care (01) ==
LOC: NEPC 23:55
DX: M54.5 Low back pain (principal); G89.29 Other chronic pain; N20.0 Calculus of kidney; K57.90 Diverticulosis of intestine, part unspecified, without perforation or abscess without bleeding; K76.0 Fatty (change of) liver, not elsewhere classified; M51.36 Other intervertebral disc degeneration, lumbar region; E11.9 Type 2 diabetes mellitus without complications; I10 Essential (primary) hypertension; J45.909 Unspecified asthma, uncomplicated
CPT/HCPCS: 74177; 80048; 81001; 85025; 96361; 96374; 96375; 99284; J1170; J1885; J7030; Q9967